=== PATIENT | female | born 1945 | race American Indian/Alaskan Native ===

== ENCOUNTER 2017-04-27 06:20 | Emergency (ER) | payer MEDICARE ==
[2017-04-27 06:28] VITALS: BP 150/82
--- NOTE | 2017-04-27 07:20 | XRay Report ---
FINAL REPORT EXAM: XRAY SHOULDER COMPLETE RIGHT HISTORY: Rt Shoulder Pain, Fell in January and pain went away. Just came back few days ago with sometimes swelling. Limited movement to the shoulder COMPARISONS: None. FINDINGS: Two views right shoulder Right glenohumeral joint appears intact. Mild acromioclavicular osteoarthrosis. Acromioclavicular and coracoclavicular intervals are within normal limits. No displaced fractures. Incomplete evaluation of the adjacent right lung is unremarkable. IMPRESSION: No acute shoulder finding. Mild acromioclavicular osteoarthrosis.
[2017-04-27] MEDS ORDERED: TORADOL IM ONE (07:21)
--- NOTE | 2017-04-27 07:22 | Emergency Department Report ---
HPI - General Chief Complaint: Extremity Injury, Upper Time Seen by Provider: 04/27/17 07:05 - HPI HPI: Patient here complaining of right shoulder injury she states that she fell in January and her shoulder still hurting. She is also reporting rash to her right arm and hand that started a few days ago pain is 8-10. Pain preceded rash. Denies any fever or chills. Denies any nausea or vomiting. Pain to shoulder is achy and worse with movement rash pain is burning and tingling and painful to touch. Patient says she took [id number] medication for pain but it didn't help her. Denies any numbness to extremities. Since that she has aren' t scheduled with her doctor sometime next week for her right shoulder and she recently had left shoulder surgery. ED Past Medical Hx - Past Medical History Previous Medical History?: Yes Hx Hypertension: Yes Hx Arthritis: Yes (osteoarthritis) Additional medical history: hiatal hernia - Surgical History Past Surgical History?: Yes Additional Surgical History: hysterectomy, 2 knee replacements - Family History Family history: hypertension - Social History Smoking Status: Never Smoker Substance Use Type: None - Medications Home Medications: Home Medications Medication Instructions Recorded Confirmed Last Taken Type Cyclobenzaprine [Flexeril] 10 mg PO BID PRN #12 tablet 01/10/16 Unknown Rx methylPREDNISolone [Medrol] 4 mg PO DAILY #1 tab.ds.pk 01/10/16 Unknown Rx traMADol [Ultram] 50 mg PO Q6HR PRN #12 tablet 01/10/16 Unknown Rx Acetaminophen/Codeine [Tylenol 1 tab PO Q6H PRN #12 tab 04/27/17 Unknown Rx /Codeine # 3 tab] Ibuprofen [Motrin] 600 mg PO Q8H PRN #15 tablet 04/27/17 Unknown Rx Valacyclovir HCl [Valtrex] 1,000 mg PO TID #21 tablet 04/27/17 Unknown Rx ED Review of Systems ROS: Stated complaint: RIGHT SHOULDER PAIN, HIVES/RASH Other details as noted in HPI Comment: All other systems reviewed and negative Constitutional: denies: chills, fever ENT: denies: ear pain, throat pain, congestion Respiratory: no symptoms reported Cardiovascular: denies: chest pain, palpitations, dyspnea on exertion, edema, syncope Gastrointestinal: denies: abdominal pain, nausea, vomiting, diarrhea, constipation Genitourinary: denies: urgency, dysuria, frequency, hematuria, discharge, abnormal menses, dyspareunia Musculoskeletal: arthralgia. denies: back pain, joint swelling, myalgia Skin: rash (Pain to rash), lesions Neurological: denies: headache, numbness, paresthesias, confusion, abnormal gait , vertigo Physical Exam - Physical Exam Vital Signs: Vital Signs 04/27/17 06:24 Temperature 98.1 F Pulse Rate 99 H Respiratory 18 Rate Blood Pressure 150/82 O2 Sat by Pulse 99 Oximetry General: This is a 71-year-old female well-nourished well-developed in no acute distress. Physical Exam: Head: Normocephalic, atraumatic, no abrasion, no bruising and no contusion. Eyes: Biateral pupils equal and reactive to light, bilateral EOM intact.. Bilateral conjunctival and sclera without injection, normal accommodation. Ears: Bilateral EAC without any redness drainage or swelling, Antonio. TM pearly hyde. bilateral Tragus is normal and nontender. No auricular abnormality Mouth: No pharyngeal exudate or erythema. Uvula is midline and oral airways patent. Moist and tongue is normal Neck: Supple, no adenopathy, full range of motion and no C-spine tenderness. No swelling or tracheal deviation Cardiovascular: S1, S2. Regular rate and rhythm. No murmur. Capillary refill is less then 3 seconds. Lungs: Clear to auscultate bilaterally. No rhonchi, wheezes or rales. No chest wall tenderness MSK: Strength 5/5 in all extremities. No joint deformity or crepitus. Normal inspection. Full range of motion to all extremities. Bilateral shoulder with full range of motion. pain to right shoulder with active range of motion. No AC joint or glenohumeral joint tenderness. Extremities: No clubbing, cyanosis or edema. +2 pulses. No neurovascular compromise Neurological: GCS is 15, alert and oriented 3, normal gait, negative pronator drift, negative Romberg. No sensory or motor deficit. Speech is clear and fluid and no facial droop . Normal reflexes Skin: Clean, dry . Noted clusters of lesions to right forearm and hand. Tender to palpate. Erythema. No drainage. Psych: Normal mood and behavior. ED Course Vital Signs 04/27/17 06:24 Temperature 98.1 F Pulse Rate 99 H Respiratory 18 Rate Blood Pressure 150/82 O2 Sat by Pulse 99 Oximetry - Reevaluation(s) Reevaluation #1: 04/27/17 08:10 Patient received Toradol 30 mg IM and emergency room ED Medical Decision Making - Radiology Data Radiology results: report reviewed X-ray right shoulder reveals no acute fracture dislocation. She does have right AC joint osteoarthritis - Medical Decision Making ED course:Patient her status post falling 2 months ago complaining of right shoulder pain.She has full range of motion to her shoulders but she complains of pain with movement of right shoulder. She doesn't have any numbness in her extremities. Patient also complains of painful rash to her right hand and forearm. Pain preceded rash outbreak. He should find to have shingles to her right upper extremity. Diagnosisand treatment plan explained to patient and she voiced understanding. patient does have MRI scheduled for next week per patient. She was given Toradol 30 mg IM and emergency room which helped her pain. Diagnostic/labs: X-ray report revealed no fracture dislocation she does have osteoarthritis to AC Joints Assessment/plan 1. Osteoarthritis right AC joint. 2. Arthralgia right shoulder 3. Shingles, right upper extremity 4. Painful rash Patient discharged home a prescription for Valtrex and Tylenol No. 3 and instructed to follow-up with orthopedic doctor which she has her own orthopedic doctor. Critical care attestation.: If time is entered above; I have spent that time in minutes in the direct care of this critically ill patient, excluding procedure time. ED Disposition Clinical Impression: Pain of skin, Arthralgia of right shoulder region Shingles outbreak Qualifiers: Herpes zoster complications: without complications Qualified Code(s): B02.9 - Zoster without complications Osteoarthritis Qualifiers: Osteoarthritis location: shoulder Osteoarthritis type: unspecified Laterality: right Qualified Code(s): M19.011 - Primary osteoarthritis, right shoulder Disposition: - TO HOME OR SELFCARE Is pt being admited?: No Does the pt Need Aspirin: No Condition: Stable Instructions: Osteoarthritis (ED), Arthralgia (ED), Herpes Zoster (ED) Additional Instructions: Please keep affected area clean and dry. Follow up with your orthopedic doctor for her scheduled MRI of right shoulder Shingles is very contagious so please stay away from children 8 years and individuals, elderly and individuals with low immune system Take all medication as prescribed Please refrain from taken Tylenol No. 3 while driving or operating heavy machinery as this medication causes drowsiness Prescriptions: Acetaminophen/Codeine [Tylenol /Codeine # 3 tab] 1 tab PO Q6H PRN #12 tab PRN Reason: Pain Ibuprofen [Motrin] 600 mg PO Q8H PRN #15 tablet PRN Reason: Pain Valacyclovir HCl [Valtrex] 1,000 mg PO TID #21 tablet Referrals: ZULEIKA LANCE MD [Primary Care Provider] - 04/29/17 PATIENCE BURNETT MD [Staff Physician] - 05/03/17 Forms: Accompanied Note, Work/School Release Form(ED)
== END 2017-04-27 08:32 | disposition home or self-care (01) ==
LOC: ED 06:20
DX: M19.011 Primary osteoarthritis, right shoulder (principal); B02.9 Zoster without complications; I10 Essential (primary) hypertension
CPT/HCPCS: 73030; 96372; 99283; J1885

== ENCOUNTER 2019-06-28 13:21 | Outpatient (CLI) | payer MEDICARE ==
--- NOTE | 2019-06-28 16:35 | Mammography Report ---
STEREOTACTIC BIOPSY WITH CLIP PLACEMENT LEFT BREAST INDICATION: Calcifications COMPARISON: Previous mammograms from [facility]. FINDINGS: A two-view mammogram was performed since we did not have full view images for comparison. The calcifi cations were identified in the upper outer quadrant. Using sterile technique, mammographic guidance, 1% lidocaine for skin anesthesia and 2% lidocaine wit h epinephrine for deep anesthesia, 8 gauge mammotome vacuum-assisted biopsy was performed from a cc f rom above approach. Samples were obtained around the clock face. [employer] calcifications were i dentified on a specimen radiograph. A localizer clip was placed at the biopsy site and the probe was removed. Hemostasis was achieved with minimal effort. A sterile dressing was applied. A post procedure mammogram demonstrated removal of at least some calcifications and concordant clip d eployment. IMPRESSION: 1. Uncomplicated successful stereotactic biopsy of the left breast with removal of at least some of t he suspicious calcifications.. Signer Name: Lefty Anderson MD Signed: 06/28/2019 4:31 PM Workstation Name: [id number]
--- NOTE | 2019-06-28 16:38 | Mammography Report ---
LEFT DIGITAL DIAGNOSTIC MAMMOGRAM CLINICAL: For assessment of calcifications prior to stereotactic biopsy and for clip placement after stereotactic biopsy. COMPARISON: Recent [facility] mammogram. FINDINGS: A biopsy clip is identified in the upper outer quadrant at site of previously identified ca lcifications. At least some of the calcifications have been removed. Minimal hematoma at the biopsy s ite. IMPRESSION: Concordant clip deployment. Signer Name: Lefty Anderson MD Signed: 06/28/2019 4:34 PM Workstation Name: [id number]
== END 2019-06-28 13:22 | disposition home or self-care (01) ==
LOC: SPVWC 13:21
PROVIDERS: ATTEND Surgery
DX: R92.0 Mammographic microcalcification found on diagnostic imaging of breast (principal); D24.2 Benign neoplasm of left breast; N62 Hypertrophy of breast; R92.8 Other abnormal and inconclusive findings on diagnostic imaging of breast; I10 Essential (primary) hypertension; M19.90 Unspecified osteoarthritis, unspecified site; Z79.899 Other long term (current) drug therapy; Z90.710 Acquired absence of both cervix and uterus
CPT/HCPCS: 19081; 77065; 88305; A4648

== ENCOUNTER 2019-08-06 06:17 | Day surgery (SDC) | payer MEDICARE ==
[~2019-08-06 06:17] MED LIST: ceFAZolin/Water 2 GM/20 ML 2 GM/20 ML SYRINGE IV NR
[2019-08-06] MEDS ORDERED: fentaNYL 100 MCG/2 ML INJ ONE (07:27)
[2019-08-06] MEDS ORDERED: PROPOFOL 200 MG/20 ML VIAL IV ONE (07:28)
[2019-08-06] MEDS ORDERED: LIDOCAINE MPF (2%) 20 MG/1 ML VIAL 5 ML ONE ×2 (07:28→08:05)
[2019-08-06] MEDS ORDERED: ONDANSETRON 4 MG/2 ML INJ IV PRN (07:34)
[2019-08-06] MEDS ORDERED: fentaNYL 100 MCG/2 ML INJ IV PRN (07:34)
--- NOTE | 2019-08-06 07:35 | Anesthesia Day of Surgery ---
Anesthesia Day of Surgery - Day of Surgery Patient Examined: Yes Patient H&P Reviewed: Yes Patient is NPO: Yes
--- NOTE | 2019-08-06 07:39 | Anesthesia Consultation ---
Anesthesia Consult and Med Hx Date of service: 08/06/19 - Airway Anesthetic Teeth Evaluation: Good, Partials, Edentulous ROM Head & Neck: Adequate Mental/Hyoid Distance: Adequate Mallampati Class: Class II Intubation Access Assessment: Good - Pre-Operative Health Status ASA Pre-Surgery Classification: ASA2 Proposed Anesthetic Plan: General - Pulmonary Hx Smoking: Yes (QUIT 30YRS AGO) - Cardiovascular System Hx Hypertension: Yes (X 10YRS; STATES DOESN'T ALWAYS TAKE MED; BP USUALLY LOW) - Central Nervous System Hx Neuromuscular Disorder: Yes (RA) Hx Psychiatric Problems: No - Gastrointestinal Hx Gastroesophageal Reflux Disease: Yes - Other Systems Hx Alcohol Use: No Hx Substance Use: No Hx Obesity: Yes - Additional Comments Anesthesia Medical History Comments: Pt states she went to get medical clearance. Pt states she can climb two flights of stairs.
[2019-08-06] MEDS ORDERED: LIDOCAINE (1%) 10 MG/1 ML VIAL 20 ML MDV ONE ×2 (07:45→08:07)
[2019-08-06] MEDS ORDERED: LACTATED RINGERS 1,000 ML IV SCH (08:00)
[2019-08-06] MEDS ORDERED: BUPIVACAINE/PF (0.25%) 2.5 MG/ML 30 ML VIAL INFILTRATI ONE ×3 (08:07→10:35)
[2019-08-06] MEDS ORDERED: LIDOCAINE (1%) 10 MG/1 ML VIAL 20 ML MDV INFILTRATI NR (08:30)
[2019-08-06] MEDS ORDERED: MIDAZOLAM 2 MG/2 ML INJ IV NR (10:00)
[2019-08-06] MEDS ORDERED: WATER FOR IRRIG STERILE 1,000 ML BOTTLE IR ONE (10:12)
[2019-08-06] MEDS ORDERED: LIDOCAINE (1%) 10 MG/1 ML VIAL 20 ML MDV INFILTRATI ONE ×2 (10:35)
--- NOTE | 2019-08-06 11:01 | Mammography Report ---
NEEDLE LOCALIZATION AND HOOKWIRE PLACEMENT LEFT BREAST INDICATION: LT DIYSPLASIA. COMPARISON: 06/28/2019 FINDINGS: A timeout was called. The breast was marked and the skin was cleaned with Betadine. Using sterile norberto hnique, 1% lidocaine for local anesthesia and mammographic guidance, a 7.5 cm Lord 2 hookwire was placed from a CC from above approach to localize a biopsy clip. Satisfactory placement was confirmed with orthogonal images. The hookwire was deployed and the needle was removed. A sterile dressing was applied. The patient tolerated the procedure well and there were no apparent complications. IMPRESSION: 1. Uncomplicated needle localization and hookwire placement left breast.. Signer Name: Lefty Anderson MD Signed: 08/06/2019 10:57 AM Workstation Name: [id number]
[2019-08-06] MEDS ORDERED: ONDANSETRON 4 MG/2 ML INJ ONE ×2 (11:18→15:18)
--- NOTE | 2019-08-06 11:27 | Short Stay Summary ---
Short Stay Documentation Date of service: 08/06/19 - History H&P: obtained from office - Allergies and Medications Current Medications: Allergies No Known Allergies Allergy (Verified 08/03/19 12:05) Home Medications Medication Instructions Recorded Confirmed Last Taken Type Allopurinol [Zyloprim] 100 mg PO QDAY 08/03/19 08/03/19 08/05/19 History Esomeprazole Magnesium [Nexium 20 mg PO DAILY 08/03/19 08/03/19 08/05/19 History 24Hr] Gabapentin [Neurontin] 300 mg PO Q8HR 08/03/19 08/03/19 08/05/19 History Olmesartan/Hydrochlorothiazide 1 each PO DAILY 08/03/19 08/06/19 08/04/19 History [Olmesartan-Hctz 20-12.5 mg Tab] HYDROcodone/APAP 5-325 [[place] 1 each PO Q6HR PRN #12 tablet 08/06/19 Unknown Rx 5/325] Active Medications Fentanyl (Sublimaze) 50 mcg IV Q5MIN PRN PRN Reason: Pain , Severe (7-10) Stop: 08/06/19 22:00 Cefazolin Sodium (Ancef/Sterile Water 2 Gm/20 Ml) 2 gm in 20 mls @ 80 mls/hr IV PREOP NR; Protocol Stop: 08/06/19 23:59 Lactated Ringer's (Lactated Ringers) 1,000 mls @ 125 mls/hr IV DIRECT NAZIA Lidocaine (Xylocaine 1% 20 Ml) 20 ml INFILTRATI ONCE NR Stop: 08/06/19 16:00 Midazolam HCl (Versed) 2 mg IV ONCE NR Stop: 08/06/19 20:00 Ondansetron HCl (Zofran) 4 mg IV ONCE PRN PRN Reason: Nausea And Vomiting Stop: 08/06/19 22:00 - Brief post op/procedure progress note Date of procedure: 08/06/19 Pre-op diagnosis: Left breast Atypical Ductal Hyperplasia Post-op diagnosis: same Procedure: Left Breast Needle Localization Excisional Biopsy Anesthesia: REMIGIO Surgeon: ALTON ALEXIS Casing Tier: DIO HOOKS Estimated blood loss: minimal Pathology: list Specimen disposition: to lab Condition: stable - Disposition Condition at discharge: Stable Disposition: DC-01 TO HOME OR SELFCARE Short Stay Discharge Plan Activity: no driving until cleared by PCP Diet: regular Wound: keep clean and dry, per your surgeon's advice (Patient can shower after 48 hours; No sitting in standing water - no baths, no pools, no lakes etc) Special Instructions: no heavy lifting Follow up with: ALTON ALEXIS MD [Staff Physician] - 7 Days Prescriptions: HYDROcodone/APAP 5-325 [[place] 5/325] 1 each PO Q6HR PRN #12 tablet PRN Reason: Pain
--- NOTE | 2019-08-06 11:33 | Operative Report ---
Operative Report Operative Report: August 06, 2019 Preoperative diagnosis: Left breast ADH of the upper outer quadrant Postoperative diagnosis: Same Procedure: Left needle localization breast excisional biopsy of the upper outer quadrant Surgeon: Najma Rodriguez MD City Carrier: Becky Headley MD Anesthesia: General Findings: Left wire and clip present within radiograph specimen Complications: None EBL: Minimal, less than 50 cc Disposition: PACU in good condition Indications for operative procedure: This is a 73 year old lady with recently biopsied left breast upper outer quadrant suspicious microcalcification with fndings of ADH. Recommendations are to proceed with a left breast excisional biopsy to rule out malignancy. She wished to proceed with the above procedure. Procedure in detail: The patient was taken to radiology for wire placement for localization known area of known ADH. Patient was then taken to the operating room. Gen. anesthesia was administered. Left breast and axilla were prepped and draped in the normal sterile operative fashion. The wire was identified. Timeout was performed. A Lateral breast incision was made with a 15 blade knife of the upper outer quadrant and dissection taken down to subcutaneous tissues. First began raising of the superior flap with removal of the wire from the skin with dissection take down posteriorly, followed by raising of the inferior flap, medial flap and lateral flap with all flaps taken down posteriorly. The breast area of concern was appropriately removed posteriorly with the aid of the Bovie cautery. The wire was not encountered. Specimen was marked and then sent to pathology and radiology; radiograph specimen with wire and clip present. Breast cavity was irrigated and hemostasis was obtained. The posterior deep breast tissues were approximated and closed using interrupted 3-0 Vicryl. The subcutaneous tissues were approximated and closed using interrupted 3-0 Vicryl followed by closing of the skin with a running 4-0 Monocryl and skin affix. The patient tolerated surgery very well and she was awaken from anesthesia without any complication and transported to PACU in good condition.
[2019-08-06] MEDS ORDERED: oxyCODONE /ACETAMINOPHEN 5-325MG TAB PO ONE (12:13)
[2019-08-06 13:02] VITALS: BP 111/56
--- NOTE | 2019-08-06 13:08 | Post Anesthesia Evaluation ---
- Post Anesthesia Evaluation Patient Participated: Yes Airway Patent: Yes Stable Respiratory Function: Yes Nausea/Vomiting: No Temp > 96.8F: Yes Pain Manageable: Yes Adequeate Hydration: Yes Anesthesia Complications: No Block Receding Appropriately: Not Applicable Patient on Ventilator: No
[2019-08-06] MEDS ORDERED: PHENYLEPHRINE/NS 1,000 MCG/10 ML SYRINGE (OR USE) IV ONE (13:22)
--- NOTE | 2019-08-09 08:08 | Mammography Report ---
SPECIMEN RADIOGRAPH LEFT BREAST INDICATION: POST EXC BX. COMPARISON: 06/28/2019 FINDINGS: A localizer clip and a hookwire are identified within the specimen. IMPRESSION: 1. Excision of the targeted lesion.. Signer Name: Lefty Anderson MD Signed: 08/09/2019 8:04 AM Workstation Name: [id number]
== END 2019-08-06 12:48 | disposition home or self-care (01) ==
LOC: OR 06:17
PROVIDERS: ATTEND Surgery
DX: N60.82 Other benign mammary dysplasias of left breast (principal); D24.2 Benign neoplasm of left breast; R92.0 Mammographic microcalcification found on diagnostic imaging of breast; I10 Essential (primary) hypertension; K21.9 Gastro-esophageal reflux disease without esophagitis; M06.9 Rheumatoid arthritis, unspecified; E66.9 Obesity, unspecified; Z87.891 Personal history of nicotine dependence; Z79.899 Other long term (current) drug therapy; Z68.32 Body mass index [BMI] 32.0-32.9, adult; Z90.710 Acquired absence of both cervix and uterus; Z96.653 Presence of artificial knee joint, bilateral; Z80.3 Family history of malignant neoplasm of breast; Z98.890 Other specified postprocedural states
CPT/HCPCS: 19125; 19281; 76098; 82803; 88307; J0690; J2370; J2405; J3010; J7120; J2704

== ENCOUNTER 2019-11-06 08:34 | Outpatient (CLI) | payer MEDICARE ==
--- NOTE | 2019-11-06 15:13 | Magnetic Resonance Report ---
BILATERAL BREAST MR WITHOUT AND WITH GADOLINIUM INDICATION: Status post left benign surgical excision for atypical ductal hyperplasia 08/06/2019. COMPARISONS: 05/24/2019 left mammogram TECHNIQUE: Axial 1.0 mm T1 without, axial high-resolution 2.0 mm T2 and axial 1.0 mm dynamic vibrant high-resolution postcontrast T1 fat saturation sequences on a 1.5 Cara magnet. The examination was p erformed with an 8-channel dedicated [place] breast coil. Post-processing with CAD and subtraction was performed on an [email or web address] workstation. 16.0 cc of MultiHance was injected without incident for the c ontrast portion of the exam. Consent was obtained prior to the administration of the contrast. FINDINGS: RIGHT BREAST: Minimal background parenchymal enhancement. No mass or suspicious enhancement. No suspi cious lymph nodes. LEFT BREAST: Mild background parenchymal enhancement. No mass or suspicious enhancement. A postsurgic al seroma in the relative central portion of the left breast measures 1.5 x 0.8 cm maximum. Mild mervin gn enhancement at the surgical site. No suspicious lymph nodes. IMPRESSION: No evidence of malignancy. Postsurgical changes in the left breast. No suspicious lymph n odes. Category 2: Benign Signer Name: Lefty Anderson MD Signed: 11/06/2019 3:09 PM Workstation Name: [id number]
== END 2019-11-06 08:35 | disposition home or self-care (01) ==
LOC: SPVIMAG 08:34
PROVIDERS: ATTEND Surgery
DX: N60.82 Other benign mammary dysplasias of left breast (principal); Z80.3 Family history of malignant neoplasm of breast
CPT/HCPCS: A9577; C8908; 77049